=== PATIENT | male | born 1945 | race Caucasian/White ===

== ENCOUNTER 2017-11-09 11:14 | Inpatient (IN) ==
--- NOTE | 2017-11-09 11:37 | Emergency Department Note ---
ED Disposition Clinical Impression: Palliative care patient Disposition: Admitted as Observation Condition on Discharge: Critical - Critical Care Critical Care Time: Yes Attestation: On 11/09/17, the high probability of a clinically significant, sudden or life threatening deterioration of the following system(s) required my full and direct attention, intervention and personal management. The time I documented below is in addition to time spent performing reported procedures but includes the following listed in this critical care notation. Total Critical Care Time: 60 Vital system(s) involved:: Circulatory Failure, Respiratory Failure My critical care processes included: Assessment & monitoring of V/S, Initial and Re-exams, Data Review/Interpretation, Coordinating Care, Medication Orders and management, Documentation Medical Decision Making - Melvin Inquiry Pt receiving controlled substance: Yes Melvin was queried for this patient: No Reason not queried -: Emergent pt cond-no time Risks and benefits of using a controlled substance: were not discussed with pt by me Comment: Ativan and morphine for comfort and seizure activity Vital Signs: 11/09/17 11:17 11/09/17 11:27 11/09/17 11:40 Temperature 96.4 F L Temperature Source Rectal Pulse Rate Pulse Rate [Femoral] 0 L 127 H 0 L Respiratory Rate 12 14 14 Blood Pressure Blood Pressure [Right Arm] 90/50 169/99 107/69 Blood Pressure Mean [Right Arm] 63 122 81 Blood Pressure Source Blood Pressure Source [Right Arm] Automatic Cuff Automatic Cuff Automatic Cuff Blood Pressure Position Blood Pressure Position [Right Arm] Supine Supine Sitting 02 Sat by Pulse Oximetry 96 98 100 Oxygen Delivery Method Ambu-Bag Mechanical Ventilation Oxygen Flow Rate (LPM) 11/09/17 11:45 11/09/17 11:47 11/09/17 11:50 Temperature Temperature Source Pulse Rate Pulse Rate [Femoral] 89 89 86 Respiratory Rate 14 14 14 Blood Pressure Blood Pressure [Right Arm] 131/33 117/56 94/65 Blood Pressure Mean [Right Arm] 65 76 74 Blood Pressure Source Blood Pressure Source [Right Arm] Automatic Cuff Automatic Cuff Automatic Cuff Blood Pressure Position Blood Pressure Position [Right Arm] Supine Sitting Sitting 02 Sat by Pulse Oximetry 100 99 Oxygen Delivery Method Room Air Mechanical Ventilation Mechanical Ventilation Oxygen Flow Rate (LPM) 11/09/17 12:22 11/09/17 12:27 11/09/17 12:28 Temperature Temperature Source Pulse Rate Pulse Rate [Femoral] 0 L 82 Respiratory Rate 18 14 Blood Pressure Blood Pressure [Right Arm] 106/51 84/54 Blood Pressure Mean [Right Arm] 69 64 Blood Pressure Source Blood Pressure Source [Right Arm] Automatic Cuff Automatic Cuff Blood Pressure Position Blood Pressure Position [Right Arm] Sitting Sitting 02 Sat by Pulse Oximetry 91 L 100 Oxygen Delivery Method Mechanical Ventilation Non-Rebreather Oxygen Flow Rate (LPM) 15 11/09/17 12:37 11/09/17 14:33 11/09/17 15:12 Temperature 98.3 F Temperature Source Oral Pulse Rate Pulse Rate [Femoral] 83 100 H Respiratory Rate 14 Blood Pressure Blood Pressure [Right Arm] 90/54 95/58 Blood Pressure Mean [Right Arm] 66 70 Blood Pressure Source Blood Pressure Source [Right Arm] Automatic Cuff Automatic Cuff Blood Pressure Position Blood Pressure Position [Right Arm] Sitting Sitting 02 Sat by Pulse Oximetry 98 92 L Oxygen Delivery Method Room Air Mechanical Ventilation Non-Rebreather Mechanical Ventilation Ambu-Bag Oxygen Flow Rate (LPM) 11/09/17 15:14 Temperature 98.3 F Temperature Source Temporal Artery Scan Pulse Rate 101 H Pulse Rate [Femoral] Respiratory Rate 24 Blood Pressure 90/30 Blood Pressure [Right Arm] Blood Pressure Mean [Right Arm] Blood Pressure Source Automatic Cuff Blood Pressure Source [Right Arm] Blood Pressure Position Supine Blood Pressure Position [Right Arm] 02 Sat by Pulse Oximetry Oxygen Delivery Method Non-Rebreather Oxygen Flow Rate (LPM) - Lab Data Lab Results 11/09/17 11:10: WBC 4.7 L, RBC 3.39 L, Hgb 9.5 L, Hct 30.3 L, MCV 89.4, MCH 28.2, MCHC 31.5 L, RDW 15.0, Plt Count 173, MPV 7.2 L, Neut % (Auto) 36.2 L, Ly mph % (Auto) 56.8 H, [place] % (Auto) 3.7, Eos % (Auto) 3.0, Baso % (Auto) 0.3, Neut # (Auto) 1.7 L, Lymph # (Auto) 2.7, [place] # (Auto) 0.2, Eos # (Auto) 0.1, Baso # (Auto) 0.0, Total Counted 100, Neutrophils % (Manual) 37 L, Lymphocytes % (Manual) 56 H, Monocytes % (Manual) 5, Eosinophils % (Manual) 2, Platelet Est imate Normal, Poikilocytosis 3+, [place] Cells 2+, Acanthocytes (Spur) 2+, Schistocytes 1+ 11/09/17 11:10: Sodium 133 L, Potassium 3.4 L, Chloride 100, Carbon Dioxide 20 L , Anion Gap 16.4 H, BUN 51 H, Creatinine 2.78 H, Estimated Creat Clear 40, Estimated GFR 23 L, Est GFR ( Amer) 27 L, Glucose 192 H, Calcium 7.7 L, Total Bilirubin 0.3, AST 22, ALT 25, Alkaline Phosphatase 200 H, Total Creatine Kinase 105, CK-MB (CK-2) 2.4, CK-MB (CK-2) Rel Index 2.3, Troponin I 0.02, Total Protein 6.1 L, Albumin 3.0 L, Globulin 3.1, Albumin/Globulin Ratio 1.0 L 11/09/17 11:10: B-Natriuretic Peptide 2050 H 11/09/17 11:10: Phenytoin 2.0 L 11/09/17 11:21: Urine Color Yellow, Urine Appearance Sl cloudy, Urine pH 6.0, Ur Specific [place] 1.010, Urine Protein 1+, Urine Glucose (UA) Negative, Urine Ketones Negative, Urine Blood 2+, Urine Nitrate Negative, Urine Bilirubin Negative, Urine Urobilinogen 0.2, Ur Leukocyte Esterase Trace, Urine RBC 20-50, Urine WBC 3-5, Ur Transition Epith Cell 3-5, Amorphous Sediment 3+, Urine Bacteria 1+ 11/09/17 11:24: POC Glucose 229 H 11/09/17 11:30: Specimen Source Right brachial, O2 % 100, ABG pH 7.11 L*, ABG pCO2 43.7, ABG pO2 303.3 H, ABG HCO3 13.5 L, ABG Total CO2 14.9 L, ABG O2 Saturation 99, ABG Base Excess -16.0 L, Carlos Test N/a, Vent Rate 18, Tidal Volume 500, PEEP 5 Result diagrams: 11/09/17 11:10 11/09/17 11:10 Orders (Tests/Meds): ED MEDICATIONS Discontinued Medications Generic Name Dose Route Start Last Admin Trade Name Freq PRN Reason Stop Dose Admin Atropine Sulfate 1 mg 11/09/17 12:25 Atropine 1mg/10ml Syringe IV 11/09/17 12:26 ONCE ONE Atropine Sulfate 1 mg 11/09/17 12:26 11/09/17 11:19 Atropine 1mg/10ml Syringe IV 12/09/17 12:25 1 mg ONCE PRN Administration Code Blue Med Administration Epinephrine HCl 1 mg 11/09/17 12:24 11/09/17 11:14 Epinephrine 0.1mg/Ml 10ml Syringe IV 12/09/17 12:23 1 mg NEEDED PRN Administration Code Blue Med Administration Potassium Chloride/Dextrose/Sod Cl 1,000 mls @ 100 mls/hr 11/09/17 14:39 Kcl 20meq In D5w-0.45% Nacl IV 12/09/17 14:38 .Q10H WILEY Lorazepam 1 mg 11/09/17 12:23 11/09/17 12:20 Ativan 2mg/Ml Vial IV 12/09/17 12:22 1 mg ONCE PRN Administration Code Blue Med Administration Lorazepam 1 mg 11/09/17 14:39 Ativan 2mg/Ml Vial IV 12/09/17 14:38 Q1HP PRN Seizures Morphine Sulfate 2 mg 11/09/17 12:24 11/09/17 12:20 Morphine 2mg/Ml Syringe IV 12/09/17 12:23 2 mg ONCE PRN Administration Muscle Pain Morphine Sulfate 2 mg 11/09/17 14:39 11/09/17 15:20 Morphine 2mg/Ml Syringe IV 12/09/17 14:38 2 mg Q1HP PRN Administration Moderate Pain Sodium Chloride 10 ml 11/09/17 14:49 Saline Flush 10ml Syringe IV 12/09/17 14:48 NEEDED PRN Maintain IV Site ORDERS Category Date Time Status Urinalysis and Microscopic Stat Lab 11/09/17 11:21 Ordered Sputum Culture & Gram Stain Stat Micro 11/09/17 Results Urine Culture(cathed specimen) Stat Micro 11/09/17 11:21 Received - Radiology Data #1 Image(s): Chest Image Reviewed: Yes I reviewed the patient's radiology image Endotracheal tube in good position. Congestive heart failure. Prior sternotomy procedure. Cardiomegaly. - CT Data CT Scan: Head Time Received: 14:[address] Reviewed: Yes: I discussed the CT results w/the radiologist, I have viewed the radiologist's interpretation Findings Narrative: IMPRESSION: Size of moderate cortical atrophy and mild chronic white matter changes, no acute intracranial pathology noted Dictated By: Peterson Giraldo Signed By: <Electronically signed by Peterson Giraldo in OV> 11/09/17 4769 - ECG Data Tracing #1 EKG interpreted by Jeanmarie Mckeon MD: Rhythm: sinus Rate: 91 [place]: normal Ectopy: none Conduction: Degree AV block, nonspecific intraventricular block ST Segment Changes: none T Wave Changes: Nonspecific Q Waves: none No evidence of acute ischemia or injury - Physician Consults Physician Consulted: Bryon Time: 11:30 Reason -: Cardiology Eval/Care Comment/Response: Does not feel patient is a candidate for therapeutic hypothermia. Prognosis very poor given his biventricular failure, recent hospital admissions congestive heart failure, review of heart transplant. Additional Consult: Nicole Time: 13:52 Reason -: Admission Comment/Response: Agrees to admit the patient to the hospital. We discussed the patient's clinical information, including history, exam, laboratory and radiology results and ED course. Per hospital procedure, I will write temporary bridge inpatient orders on the patient. Specific orders requested by the admitting physician: Comfort care Medical Decision Narrative: 11:30 AM: Discussed with family. The patient apparently has a DNR and living will, but this was unknown to EMS personnel and us until this time. I spoke with Dr. Slater, his automotive professional. Patient has biventricular failure and has refused consideration of a heart transplant. I have discussed with family that prognosis is very poor. Decision has been made that if the patient goes into cardiac arrest again, CPR will not be started. At this time endotracheal tube and ventilator will be continued. 12:00 noon: has made the definitive decision to withdraw his ventilator. She does not want him transferred to [facility]. She would like him admitted here to his primary care physician. Patient was extubated. Placed on oxygen. He is having intermittent seizure activity. He is having spontaneous ventilation. Pulse ox remains in the 90s on 100% nonrebreather. At this time he is not on any cardiac drips. He is receiving morphine for comfort and Ativan for comfort and seizure activity. General Adult HPI - General Chief complaint: Cardiac Arrest/CPR Stated complaint: witnessed cardiac arrest Time Seen by Provider: 11/09/17 11:14 - History of Present Illness HPI narrative: Seen immediately upon arrival. Initial history from EMS personnel. Witnessed cardiac arrest. Patient became unresponsive and began shaking. EMS found him to be in ventricular fibrillation. Defibrillated into asystole, then developed PEA, then perfusing sinus rhythm. LMA was placed. - Related Data Home Medications Medication Instructions Recorded Confirmed Amlodipine Besylate [Amlodipine 10 mg PO DAILY 07/10/17 08/10/17 10mg Tab] Aspirin [Aspirin 325mg Tab] 325 mg PO DAILY 07/10/17 08/10/17 Carvedilol [Carvedilol 25mg Tab] 25 mg PO DAILY 07/10/17 08/10/17 Hydralazine HCl [Hydralazine HCl 0 mg PO DAILY 07/10/17 08/10/17 25mg Tablet] Isosorbide Mononitrate [Imdur 60mg 0 mg PO DAILY 07/10/17 08/10/17 ER tablet] Lisinopril [Lisinopril 20mg Tab] 20 mg PO DAILY 07/10/17 08/10/17 Spironolactone [Spironolactone 25 mg PO DAILY 07/10/17 08/10/17 25mg Tab] Previous Rx's Medication Instructions Recorded furosemide 40 mg tablet 40 mg PO DAILY #90 tab 07/30/17 Ciprofloxacin HCl [Ciprofloxacin 500 mg PO BID #20 tab 08/10/17 500mg Tab] atorvastatin 40 mg tablet 40 mg PO ONCE #90 tab 09/11/17 ferrous sulfate 325 mg (65 mg 325 mg PO DAILY #90 tab 09/11/17 iron) tablet phenytoin sodium extended 100 mg See Rx Instructions PO .COMPLEX 09/11/17 capsule #450 cap hydroxyzine HCl 25 mg tablet 25 mg PO BID PRN #60 tab 11/01/17 Allergies Allergy/AdvReac Type Severity Reaction Status Date / Time No Known Allergies Allergy Verified 07/10/17 12:29 [facility] History Medical History: Denies:: Diabetes Mellitus Type 1, Diabetes Mellitus Type 2 Amputation: No Fractures: No - Social History Smoking Status: Former smoker Tobacco Type: cigarettes Alcohol Intake: never ROS Obtained: Yes unobtainable due to mental status Physical Exam - General General appearance: other (Unresponsive to painful stimuli. Occasional gasping type respiratory movement without any effective air movement.) - Head Head exam: atraumatic, normocephalic, normal inspection - Eye Eye exam: Present: other (Pupils fixed and dilated bilaterally) - ENT ENT exam: Present: normal oropharynx, mucous membranes moist - Neck Neck exam: Present: normal inspection - Respiratory Respiratory exam: Present: other (Agonal breathing) - Cardiovascular Cardiovascular exam: Present: other (Asystole on arrival) - Abdominal Exam Abdominal exam: Present: soft. Absent: distention - Extremities Exam Extremities exam: Present: other (Bandages with stockingette both legs) - Neurological Exam Neurological exam: Present: other (Unresponsive to all stimuli) - Skin Skin exam: Present: pallor Procedures - Miscellaneous Procedure Procedure Performed: Endotracheal Intubation Performed by: JEANMARIE MCKEON Authorized by: JEANMARIE MCKEON Consent: The procedure was performed in an emergent situation. Indications: cardiac arrest Intubation method: direct Laryngoscope size: Conde 3 Tube size: 8.0 mm Tube type: cuffed Number of attempts: 1 Cords visualized: yes, yellow liquid flowing out of the trachea, evidence of aspiration Post-procedure assessment: chest rise and CO2 detector Breath sounds: equal and absent over the epigastrium Cuff inflated: yes ETT to teeth: 22 cm Tube secured with: ETT dhillon
[2017-11-09 11:41] LABS: ABG HCO3 13.5 mmhg (22.0-26.0); ABG Oxygen Saturation 99 % (90-100); ABG PCO2 43.7 mmhg (35.0-45.0); ABG PO2 303.3 mmhg (80-100); ABG TCO2 14.9 mmhg (23-27)
[2017-11-09 11:43] LABS: Microscopic, Urine URINE MICROSCOPIC (MICROSCOPIC)
[2017-11-09 11:44] LABS: Appearance,Urine SL CLOUDY (Clear); Bilirubin,Urine Negative (Negative); Blood, Urine 2+ (Negative); Color,Urine YELLOW (Yellow); Glucose,Urine (UA) Negative (Negative); Ketones,Urine Negative (Negative); Leukocyte Esterase,Urine TRACE (Negative); Protein,Urine 1+ (Negative); Urobilinogen,Urine 0.2 EU/dl (0.2)
[2017-11-09 11:50] LABS: Basophils % 0.3 % (0.1-2.0); Eosinophils # 0.1 K/mm3 (0.0-0.4); Hematocrit 30.3 % (42.0-52.0); Hemoglobin 9.5 g/dL (14.1-18.0); Lymphocytes # 2.7 K/mm3 (0.7-4.5); Lymphocytes % 56.8 K/mm3 (10-50); Mean Corpuscular HGB Conc 31.5 g/dL (31.8-35.4); Mean Corpuscular Hemoglobin 28.2 pg (27.0-31.2); Mean Corpuscular Volume 89.4 fl (80-94); Mean Platelet Volume 7.2 fl (7.4-10.4); Monocytes # 0.2 K/mm3 (0.1-1.0); Monocytes % 3.7 % (1.7-9.3); Neutrophils # 1.7 K/mm3 (1.8-7.8); Neutrophils % 36.2 % (37.0-80.0); Platelet Count 173 K/mm3 (142-424); Red Blood Count 3.39 M/mm3 (4.60-6.20); White Blood Count 4.7 K/mm3 (4.8-10.8)
[2017-11-09 12:06] LABS: Amorphous Sediment,Urine 3+ /lpf; Bacteria,Urine 1+ /lpf; RBC,Urine 20-50 #/hpf (0-3)
[2017-11-09 12:11] LABS: Anion Gap 16.4 mEq/L (5-15); Bilirubin,Total 0.3 mg/dL (0.2-1.0); Calcium 7.7 mg/dL (8.5-10.1); Globulin 3.1 gm/dl (1.3-3.2); Potassium 3.4 mmoL/L (3.5-5.1); Total Protein,Serum 6.1 gm/dL (6.4-8.2)
[2017-11-09 12:22] LABS: Oxygen 100 %; PEEP 5; Tidal Volume 500
[2017-11-09 12:23] LABS: ABG PH 7.11 mmol/L (7.35-7.45)
[2017-11-09 12:31] LABS: Eosinophils % 2 % (0-3); Lymphocytes % 56 % (10-50); Monocytes % 5 % (2-9); Neutrophils % 37 % (42-76); Total Cells Counted 100
--- NOTE | 2017-11-09 19:30 | Death Note ---
Pronouncement Note - Date and Time of Date of : 11/09/17 Time of : 16:25 - PCOD Preliminary cause of : Cardiac arrest - Summary Additional details: ventricular fibrillation cardiac arrest - Additional Data Confirmation of : no pulse, no respirations, no heart sounds, pupils fixed and dilated Family: at bedside Attending physician: Joey Rivera MD
--- NOTE | 2017-12-06 13:21 | H&P/Discharge Summary ---
General - General Admission date:: 11/09/17 Discharge date: 11/09/17 *Admission Date: 11/09/17 *Chief complaint: comfort care only *History of present illness: Status post witnessed code. Per ed note patient was admitted for comfort care only per family request. Patient prior to being seen by primary care. [facility] History I have reviewed the patient's past medical history: Yes Medical History: Denies:: Diabetes Mellitus Type 1, Diabetes Mellitus Type 2 Amputation: No Fractures: No - *Social History Smoking Status: Former smoker Tobacco Type: cigarettes Alcohol Intake: never Review of Systems - Review of Systems Review of systems:: other Exam Vital signs and Labs for Last 24 Hours: Temp Pulse Resp BP Pulse Ox 98.3 F 101 H 24 90/30 92 L 11/09/17 15:14 11/09/17 15:14 11/09/17 15:14 11/09/17 15:14 11/09/17 14:33 Laboratory Results - last 24 hr 11/09/17 11:10: WBC 4.7 L, RBC 3.39 L, Hgb 9.5 L, Hct 30.3 L, MCV 89.4, MCH 28.2, MCHC 31.5 L, RDW 15.0, Plt Count 173, MPV 7.2 L, Neut % (Auto) 36.2 L, Lymph % (Auto) 56.8 H, [place] % (Auto) 3.7, Eos % (Auto) 3.0, Baso % (Auto) 0.3, Neut # (Auto) 1.7 L, Lymph # (Auto) 2.7, [place] # (Auto) 0.2, Eos # (Auto) 0.1, Baso # (Auto) 0.0, Total Counted 100, Neutrophils % (Manual) 37 L, Lymphocytes % (Manual) 56 H, Monocytes % (Manual) 5, Eosinophils % (Manual) 2, Platelet Estimate Normal, Poikilocytosis 3+, [place] Cells 2+, Acanthocytes (Spur) 2+, Schis tocytes 1+ 11/09/17 11:10: Sodium 133 L, Potassium 3.4 L, Chloride 100, Carbon Dioxide 20 L , Anion Gap 16.4 H, BUN 51 H, Creatinine 2.78 H, Estimated Creat Clear 40, Estimated GFR 23 L, Est GFR ( Amer) 27 L, Glucose 192 H, Calcium 7.7 L, Total Bilirubin 0.3, AST 22, ALT 25, Alkaline Phosphatase 200 H, Total Creatine Kinase 105, CK-MB (CK-2) 2.4, CK-MB (CK-2) Rel Index 2.3, Troponin I 0.02, Total Protein 6.1 L, Albumin 3.0 L, Globulin 3.1, Albumin/Globulin Ratio 1.0 L 11/09/17 11:10: B-Natriuretic Peptide 2050 H 11/09/17 11:10: Phenytoin 2.0 L 11/09/17 11:21: Urine Color Yellow, Urine Appearance Sl cloudy, Urine pH 6.0, Ur Specific [place] 1.010, Urine Protein 1+, Urine Glucose (UA) Negative, Urine Ketones Negative, Urine Blood 2+, Urine Nitrate Negative, Urine Bilirubin Negative, Urine Urobilinogen 0.2, Ur Leukocyte Esterase Trace, Urine RBC 20-50, Urine WBC 3-5, Ur Transition Epith Cell 3-5, Amorphous Sediment 3+, Urine Bacteria 1+ 11/09/17 11:24: POC Glucose 229 H 11/09/17 11:30: Specimen Source Right brachial, O2 % 100, ABG pH 7.11 L*, ABG pCO2 43.7, ABG pO2 303.3 H, ABG HCO3 13.5 L, ABG Total CO2 14.9 L, ABG O2 Saturation 99, ABG Base Excess -16.0 L, Carlos Test N/a, Vent Rate 18, Tidal Volume 500, PEEP 5 I & O for Last 24 hours: Intake & Output 11/07/17 11/08/17 11/09/17 11/10/17 11:59 11:59 11:59 11:59 Weight 250 lb Microbiology Reports for the Last 24 Hours: Microbiology 11/09/17 Unknown Sputum - Endotracheal Tube Aspirate Gram Stain - Final Narrative: Patient before being seen by primary care Hospital Course Hospital Course: She prior to being seen by primary care Results Labs on day of discharge: Labs from last 24 hours 11/09/17 11/09/17 11/09/17 11:30 11:24 11:21 WBC RBC Hgb Hct MCV MCH MCHC RDW Plt Count MPV Neut % (Auto) Lymph % (Auto) [place] % (Auto) Eos % (Auto) Baso % (Auto) Neut # (Auto) Lymph # (Auto) [place] # (Auto) Eos # (Auto) Baso # (Auto) Total Counted Neutrophils % (Manual) Lymphocytes % (Manual) Monocytes % (Manual) Eosinophils % (Manual) Platelet Estimate Poikilocytosis [place] Cells Acanthocytes (Spur) Schistocytes Specimen Source Right brachial O2 % 100 ABG pH 7.11 L* ABG pCO2 43.7 ABG pO2 303.3 H ABG HCO3 13.5 L ABG Total CO2 14.9 L ABG O2 Saturation 99 ABG Base Excess -16.0 L Carlos Test N/a Vent Rate 18 Tidal Volume 500 PEEP 5 Sodium Potassium Chloride Carbon Dioxide Anion Gap BUN Creatinine Estimated Creat Clear Estimated GFR Est GFR ( Amer) Glucose POC Glucose 229 H Calcium Total Bilirubin AST ALT Alkaline Phosphatase Total Creatine Kinase CK-MB (CK-2) CK-MB (CK-2) Rel Index Troponin I B-Natriuretic Peptide Total Protein Albumin Globulin Albumin/Globulin Ratio Urine Color Yellow Urine Appearance Sl cloudy Urine pH 6.0 Ur Specific [place] 1.010 Urine Protein 1+ Urine Glucose (UA) Negative Urine Ketones Negative Urine Blood 2+ Urine Nitrate Negative Urine Bilirubin Negative Urine Urobilinogen 0.2 Ur Leukocyte Esterase Trace Urine RBC 20-50 Urine WBC 3-5 Ur Transition Epith Cell 3-5 Amorphous Sediment 3+ Urine Bacteria 1+ Phenytoin 11/09/17 11/09/17 11/09/17 11:10 11:10 11:10 WBC RBC Hgb Hct MCV MCH MCHC RDW Plt Count MPV Neut % (Auto) Lymph % (Auto) [place] % (Auto) Eos % (Auto) Baso % (Auto) Neut # (Auto) Lymph # (Auto) [place] # (Auto) Eos # (Auto) Baso # (Auto) Total Counted Neutrophils % (Manual) Lymphocytes % (Manual) Monocytes % (Manual) Eosinophils % (Manual) Platelet Estimate Poikilocytosis [place] Cells Acanthocytes (Spur) Schistocytes Specimen Source O2 % ABG pH ABG pCO2 ABG pO2 ABG HCO3 ABG Total CO2 ABG O2 Saturation ABG Base Excess Carlos Test Vent Rate Tidal Volume PEEP Sodium 133 L Potassium 3.4 L Chloride 100 Carbon Dioxide 20 L Anion Gap 16.4 H BUN 51 H Creatinine 2.78 H Estimated Creat Clear 40 Estimated GFR 23 L Est GFR ( Amer) 27 L Glucose 192 H POC Glucose Calcium 7.7 L Total Bilirubin 0.3 AST 22 ALT 25 Alkaline Phosphatase 200 H Total Creatine Kinase 105 CK-MB (CK-2) 2.4 CK-MB (CK-2) Rel Index 2.3 Troponin I 0.02 B-Natriuretic Peptide 2050 H Total Protein 6.1 L Albumin 3.0 L Globulin 3.1 Albumin/Globulin Ratio 1.0 L Urine Color Urine Appearance Urine pH Ur Specific [place] Urine Protein Urine Glucose (UA) Urine Ketones Urine Blood Urine Nitrate Urine Bilirubin Urine Urobilinogen Ur Leukocyte Esterase Urine RBC Urine WBC Ur Transition Epith Cell Amorphous Sediment Urine Bacteria Phenytoin 2.0 L 11/09/17 11:10 WBC 4.7 L RBC 3.39 L Hgb 9.5 L Hct 30.3 L MCV 89.4 MCH 28.2 MCHC 31.5 L RDW 15.0 Plt Count 173 MPV 7.2 L Neut % (Auto) 36.2 L Lymph % (Auto) 56.8 H [place] % (Auto) 3.7 Eos % (Auto) 3.0 Baso % (Auto) 0.3 Neut # (Auto) 1.7 L Lymph # (Auto) 2.7 [place] # (Auto) 0.2 Eos # (Auto) 0.1 Baso # (Auto) 0.0 Total Counted 100 Neutrophils % (Manual) 37 L Lymphocytes % (Manual) 56 H Monocytes % (Manual) 5 Eosinophils % (Manual) 2 Platelet Estimate Normal Poikilocytosis 3+ [place] Cells 2+ Acanthocytes (Spur) 2+ Schistocytes 1+ Specimen Source O2 % ABG pH ABG pCO2 ABG pO2 ABG HCO3 ABG Total CO2 ABG O2 Saturation ABG Base Excess Carlos Test Vent Rate Tidal Volume PEEP Sodium Potassium Chloride Carbon Dioxide Anion Gap BUN Creatinine Estimated Creat Clear Estimated GFR Est GFR ( Amer) Glucose POC Glucose Calcium Total Bilirubin AST ALT Alkaline Phosphatase Total Creatine Kinase CK-MB (CK-2) CK-MB (CK-2) Rel Index Troponin I B-Natriuretic Peptide Total Protein Albumin Globulin Albumin/Globulin Ratio Urine Color Urine Appearance Urine pH Ur Specific [place] Urine Protein Urine Glucose (UA) Urine Ketones Urine Blood Urine Nitrate Urine Bilirubin Urine Urobilinogen Ur Leukocyte Esterase Urine RBC Urine WBC Ur Transition Epith Cell Amorphous Sediment Urine Bacteria Phenytoin Discharge Medications - Medications for Discharge Home Medication List at Discharge: No Action ferrous sulfate 325 mg (65 mg iron) tablet 325 mg PO DAILY #90 tab atorvastatin 40 mg tablet 40 mg PO ONCE #90 tab furosemide 40 mg tablet 40 mg PO DAILY #90 tab phenytoin sodium extended 100 mg capsule See Rx Instructions PO .COMPLEX #450 cap hydroxyzine HCl 25 mg tablet 25 mg PO BID PRN #60 tab PRN Reason: itching Aspirin [Aspirin 325mg Tab] 325 mg PO DAILY Isosorbide Mononitrate [Imdur 60mg ER tablet] 0 mg PO DAILY Hydralazine HCl [Hydralazine HCl 25mg Tablet] 0 mg PO DAILY Amlodipine Besylate [Amlodipine 10mg Tab] 10 mg PO DAILY Spironolactone [Spironolactone 25mg Tab] 25 mg PO DAILY Lisinopril [Lisinopril 20mg Tab] 20 mg PO DAILY Ciprofloxacin HCl [Ciprofloxacin 500mg Tab] 500 mg PO BID #20 tab Carvedilol [Carvedilol 25mg Tab] 25 mg PO DAILY Disposition Disposition:
== END 2017-11-09 16:25 | disposition expired ==
LOC: ER 11:14 → 2ND 14:31
PROVIDERS: ADMIT Emergency Medicine; ATTEND Emergency Medicine